=== PATIENT | female | born 1985 | race Two or more races ===

== ENCOUNTER 2025-04-26 10:04 | Emergency (ER) | payer MEDICAID, SELFPAY ==
[2025-04-26 10:06] VITALS: PULSE 110; RESP 20; O2SAT 100
[2025-04-26 10:09] VITALS: BP 123/73; PULSE 105; RESP 22; TEMP 37.2; O2SAT 96
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
--- NOTE | 2025-04-26 10:45 | PC.NURSE ---
Pt.'s sister wants water with no ice, given. Pt.'s sister gave some to pt. and pt.vomited large amount of yellow fluid. Asked sister to please not give pt. anymore water at this time.
--- NOTE | 2025-04-26 10:47 | PC.NURSE ---
Pt. cleaned and linen change done.
--- NOTE | 2025-04-26 11:06 | PC.NURSE ---
Pt.'s sister states that pt. had a BM last night and it was hard.
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
[2025-04-26 12:05] LABS: Basophils # (Auto) 0.0 Thou/mm3 (0.0-0.2); Basophils % (Auto) 0 % (0-2.5); Eosinophils # (Auto) 0.0 Thou/mm3 (0.0-0.5); Eosinophils % (Auto) 0 % (0-10); Hematocrit 39.5 % (36.0-46.0); Hemoglobin 13.3 g/dL (12.0-16.0); Immature Granulocytes Auto 0.02 Thou/mm3 (0.00-0.00); Lymphocytes # (Auto) 0.7 Thou/mm3 (1.0-4.8); Lymphocytes % (Auto) 9 % (10-50); Mean Corpuscular HGB Conc 33.7 g/dl (31.0-37.0); Mean Corpuscular Hemoglobin 31.3 pg (25.0-35.0); Mean Corpuscular Volume 93 fL (80-100); Monocytes # (Auto) 0.3 Thou/mm3 (0.0-0.8); Monocytes % (Auto) 4 % (0-12); Neutrophils # (Auto) 6.8 Thou/mm3 (1.8-7.7); Neutrophils % (Auto) 86 % (37-80); Nucleated Red Blood Cell # 0.00 Thou/mm3 (0.00-0.00); Nucleated Red Blood Cell % 0 /100 WBC (0); Platelet Count 180 Thou/mm3 (140-440); RDW Standard Deviation 43.4 fL (36.4-46.3); Red Blood Count 4.25 Miln/mm3 (4.00-5.20); White Blood Count 7.9 Thou/mm3 (3.6-11.0)
[2025-04-26] MEDS: levETIRAcetam INJ 100 MG/ML VIAL 5ML 1000 MG IVP (12:18)
[2025-04-26] MEDS: ONDANSETRON INJ 2 MG/ML INJ 2 ML 4 MG IVP (12:19)
[2025-04-26 12:33] LABS: Alanine Aminotransferase < 7 U/L (10-49); Albumin, Serum 4.0 gm/dL (3.5-5.0); Albumin/Globulin Ratio 1.7 (1.2-2.2); Alkaline Phosphatase 73 U/L (46-116); Anion Gap 9 (7-16); Aspartate Amino Transferase 11 U/L (0-34); BUN/Creatinine Ratio 25 Ratio (12-20); Bilirubin,Total 0.3 mg/dL (0.3-1.2); Blood Urea Nitrogen 10 mg/dL (9-23); Calcium 8.8 mg/dL (8.3-10.6); Calcium (Corrected) 8.8 mg/dL (8.5-10.1); Carbon Dioxide 23.9 mMol/L (20.0-31.0); Chloride 110 mMol/L (98-107); Creatinine (Component) 0.4 mg/dL (0.6-1.3); Globulin 2.4 gm/dL (2.3-3.5); Glucose 137 mg/dL (74-106); Osmolality,Calculated 285 (275-295); Potassium 3.3 mMol/L (3.4-5.1); Sodium 143 mMol/L (136-145); Total Protein 6.4 gm/dL (5.7-8.2); eGFR > 60 See Note
--- NOTE | 2025-04-26 12:46 | PC.NURSE ---
Pt. had soft BM in brief, pt. cleaned and myra care done, brief changed and partial linen change done.
[2025-04-26 12:52] LABS: Collection Type, Urine Catheter
[2025-04-26 13:29] LABS: Bacteria,Urine 1+; Bilirubin,Urine Negative (Negative); Blood,Urine Negative (Negative); Clarity,Urine Clear (Clear/Hazy); Color,Urine Yellow (Lt Yel-Yel); Culture Indicated,Urine Yes; Glucose, Urine Negative (Negative); Ketones,Urine 1+ (Negative); Leukocyte Esterase,Urine Positive (Negative); Nitrite,Urine Positive (Negative); PH,Urine 5.5 (5.0-7.0); Protein,Urine Trace (Neg - Trace); RBC,Urine 1 /hpf (0-3); Specific Gravity,Urine 1.024 (1.001-1.035); Squamous Epithelial Cell,Urine 4 /hpf (0-5); Urobilinogen,Urine Negative mg/dL (0.0-1.0); WBC,Urine 3 /hpf (0-5)
[2025-04-26] MEDS: TRIMETHOPRIM/SULFA 160/800 DS TABLET 1 TAB PO (14:20)
[2025-04-26] MEDS: MAGNESIUM OXIDE 400 MG TABLET PO (14:20)
[2025-04-26] MEDS: POTASSIUM CHLORIDE 10% 20 MEQ/15 ML UDC 40 MEQ PO (14:20)
[2025-04-26 15:34] VITALS: BP 100/47; PULSE 98; RESP 15; TEMP 36.9; O2SAT 98
--- NOTE | 2025-04-26 16:16 | PC.NURSE ---
called [facility] transport services [phone] gave requested information, dispatch states pickup will be 1830.
[2025-04-26 17:55] VITALS: BP 102/56; PULSE 97; RESP 22; TEMP 37.5; O2SAT 98
[2025-04-26 19:18] VITALS: BP 95/57; PULSE 99; RESP 17; TEMP 36.9; O2SAT 99
== END 2025-04-26 19:20 | disposition home or self-care (01) ==
PROVIDERS: Emergency Provider Emergency Medicine; PCP Student in an Organized Health Care Education/Training Program
DX: G40.909 Epilepsy, unspecified, not intractable, without status epilepticus (principal); N39.0 Urinary tract infection, site not specified
CPT/HCPCS: 36415; 80053; 81001; 85025; 87077; 87086; 87186; 96374; 96375; 99283; J1953; J2405; A9270